=== PATIENT | male | born 1975 | race American Indian/Alaskan Native ===

== ENCOUNTER 2022-01-15 12:00 | Emergency (ER) | payer OTHER ==
[2022-01-15 12:22] VITALS: BP 139/86
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
[2022-01-15] MEDS ORDERED: HYDROcodone/ACETAMINOPHEN 10-325MG TAB PO ONE (18:15)
[2022-01-15] MEDS ORDERED: PROMETHAZINE 25 MG TAB PO ONE (18:15)
[2022-01-15] MEDS ORDERED: CYCLOBENZAPRINE 10 MG TAB PO ONE (18:26)
[2022-01-15] MEDS ORDERED: IBUPROFEN 800 MG TAB PO ONE (18:26)
[2022-01-15] MEDS: HYDROcodone/ACETAMINOPHEN 5-325 MG TAB PO ONE ×2 (18:53→22:02)
--- NOTE | 2022-01-15 18:54 | XRay Report ---
Cervical spine INDICATION: Neck pain FINDINGS: Overall alignment appears normal. No prevertebral soft tissue swelling is seen. Visualized odontoid appears normal. Cervicothoracic junction is not well seen which limits examination. If there is pain or clinical concern CT cervical spine is recommended for further evaluation. Lumbar spine 2 views INDICATION: Back pain FINDINGS: Alignment appears normal. Facet degenerative change L4-5 and L5-S1. No subluxation. Visuali zed sacrum appears normal Signer Name: Logan Silva MD Signed: 01/15/2022 6:50 PM Workstation Name: [id number]
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
== END 2022-01-15 21:57 | disposition home or self-care (01) ==
LOC: ED 12:00
DX: S39.012A Strain of muscle, fascia and tendon of lower back, initial encounter (principal); M62.830 Muscle spasm of back; M62.838 Other muscle spasm; M54.2 Cervicalgia; G44.86 Cervicogenic headache; J32.9 Chronic sinusitis, unspecified; Z90.89 Acquired absence of other organs; Z98.890 Other specified postprocedural states; Z79.899 Other long term (current) drug therapy; V87.7XXA Person injured in collision between other specified motor vehicles (traffic), initial encounter; Y93.89 Activity, other specified; Y92.488 Other paved roadways as the place of occurrence of the external cause; Y99.8 Other external cause status
CPT/HCPCS: 70450; 72040; 72100; 72125; 99284